=== PATIENT | male | born 1950 | race Caucasian/White ===

== ENCOUNTER → 2016-12-21 | Outpatient (CLI) | payer BC ==
[2016-12-21 08:40] LABS: EKG EKG PERFORMED
[2016-12-21 09:24] LABS: Basophils % (A) 1 %; CH 32.2; CHCM 34.3; Eosinophils # (A) 0.1 k/uL (0-0.7); Eosinophils % (A) 3 %; HCT 47.5 % (39.0-53.0); HDW 2.29; HGB 15.5 gm/dL (13.0-17.5); Luc % (Auto) 3; Lymphocytes % (A) 28 %; MCH 30.9 pg (25.0-35.0); MCHC 32.7 g/dL (31.0-37.0); MCV 94.4 fL (80.0-100.0); Mean Platelet Volume 7.4; Monocytes # (A) 0.3 k/uL (0-1.0); Monocytes % (A) 8 %; Neutrophils # (A) 2.2 k/uL (1.3-7.7); Neutrophils % (A) 58 %; RBC 5.03 m/uL (4.30-5.90); RDW 13.9 % (11.5-15.5); WBC 3.7 k/uL (3.8-10.6); WBC (Perox) 4.33
[2016-12-21 09:44] LABS: Anion Gap 10 mmol/L; Blood Urea Nitrogen 19 mg/dL (9-20); Calcium 9.3 mg/dL (8.4-10.2); Carbon Dioxide 27 mmol/L (22-30); Chloride 106 mmol/L (98-107); Glucose 80 mg/dL (74-99); Non-African American GFR(MDRD) >60 (>60 ml/min/1.73 sqM); Potassium 4.3 mmol/L (3.5-5.1); Sodium 143 mmol/L (137-145)
== END | disposition home or self-care (01) ==
LOC: LABWHC1 08:31
PROVIDERS: ATTEND Urology
DX: Z01.810 Encounter for preprocedural cardiovascular examination (principal); E03.9 Hypothyroidism, unspecified; N40.1 Benign prostatic hyperplasia with lower urinary tract symptoms; R00.1 Bradycardia, unspecified
CPT/HCPCS: 36415; 80048; 85025; 93005

== ENCOUNTER 2016-12-29 08:58 | Day surgery (SDC) | payer BC ==
[2016-12-28 08:37] VITALS: BMI 39.9
[~2016-12-29 08:58] MED LIST: DEXAMETHASONE SOD PHOSPHATE 10 MG/ML 1 ML VIAL IV ONE; HYDROmorphone 1 MG/ML 1 ML SYRINGE IVP PRN; LACTATED RINGERS 1,000 ML IV SCH; ONDANSETRON 4 MG/2 ML VIAL IVP ONE; ceFAZolin 2 GM in SODIUM CHLORIDE 0.9% 100 ML IVPB ONE
[2016-12-29] MEDS ORDERED: LIDOCAINE 1% 20 ML VIAL (10MG/ML) FOR IV START INTRADERMA ONE (10:48)
[2016-12-29] MEDS ORDERED: MIDAZOLAM 2 MG/2 ML VIAL ONE (12:12)
[2016-12-29] MEDS ORDERED: ePHEDrine SULFATE/0.9% NACL/PF 50 MG/5 ML SYRINGE IV ONE (12:12)
[2016-12-29] MEDS ORDERED: fentaNYL (PF) 50 MCG/ML 2 ML AMP ONE (12:12)
[2016-12-29] MEDS ORDERED: HYDROmorphone (PF) 1 MG/ML ONE (12:12)
[2016-12-29] MEDS ORDERED: PROPOFOL 10 MG/ML 20 ML VIAL IV ONE (12:12)
[2016-12-29] MEDS ORDERED: SUCCINYLCHOLINE CHLORIDE 100 MG/5 ML SYR IV ONE (12:12)
[2016-12-29] MEDS ORDERED: LIDOCAINE 1% INJ 10MG/ML (20 ML MDV) ONE (12:12)
--- NOTE | 2016-12-29 14:26 | P.OP ---
Date of Procedure: 12/29/16 Preoperative Diagnosis: BPH with Obstruction Postoperative Diagnosis: Same Procedure(s) Performed: Cystoscopy, Bipolar Transurethral Resection of Prostate (TURP) Anesthesia: CHAPITO Surgeon: Yobani Bustamante Estimated Blood Loss (ml): 150 IV fluids (ml): 700 Pathology: other (prostate chips) Condition: stable Disposition: PACU Indications for Procedure: He is a 65-year-old male who has taken tamsulosin for approximately 10 years for BPH. He notes that his symptoms are worse when he misses a dose. His voiding symptoms have progressed, and uroflow and cystoscopy are consistent with PADILLA secondary to trilobar BPH. He has elected to undergo a bipolar TURP. Operative Findings: Trilobar BPH Description of Procedure: The patient was taken in the operating room and placed in the dorsolithotomy position, The external genitalia was prepped and draped sterilely. The 25- Romanian ACMI resectoscope sheath was introduced into the bladder. The bladder was inspected. Both ureteral orifices were of normal anatomic location and configuration, and clear urine effluxed from both. No tumors or foreign bodies were seen. Examination of the prostate revealed complete obstruction with a trilobar configuration. Using the bipolar cutting loop, the l median lobe was initially resected. Next, the ateral lobes were resected down to the surgical capsule. The floor of the prostate was then resected, proximal to the verumontanum. Lastly, any remaining anterior tissue was resected. The remaining apical tissue was then carefully resected. The resection was carried down to the surgical capsule in all 4 quadrants. The prostatic fossa was then carefully examined, and any areas of bleeding were controlled with electrocautery. Very good hemostasis was attained. The resectoscope was withdrawn into the bulbous urethra. The external urinary sphincter remained intact. The prostatic fossa was open. The [employer] evacuator was used to remove all prostate chips from the bladder. These were saved and sent for pathologic examination. The resectoscope was removed, and a 22 Romanian, 3-Way Connelly catheter was placed. The return was essentially clear. Continuous bladder irrigation was started using 0.9 normal saline. The patient tolerated the procedure well was taken to the recovery room in stable condition.
[2016-12-29] MEDS ORDERED: MAG HYDROX/AL HYDROX/SIMETH 30 ML CUP PO PRN (14:27)
[2016-12-29] MEDS ORDERED: ACETAMINOPHEN TAB 325 MG TAB PO PRN (14:27)
[2016-12-29] MEDS ORDERED: BELLADONNA-OPIUM 16.2-60 MG 1 EACH SUPP RECTAL PRN (14:27)
[2016-12-29] MEDS ORDERED: HYDROcodone/APAP 5-325MG 1 EACH TAB PO PRN ×2 (14:28)
[2016-12-29 15:11] VITALS: RESP 16
[2016-12-29] MEDS: DEXTROSE 5%-0.45% NACL 1,000 ML IV SCH (16:05)
[2016-12-29] MEDS: DOCUSATE 100 MG CAP PO SCH (20:17)
[2016-12-30] MEDS: SODIUM CHLORIDE 0.9% IRRIG 3,000 ML BAG IRRIGATION PRN ×2 (00:03→04:33)
[2016-12-30] MEDS: DEXTROSE 5%-0.45% NACL 1,000 ML IV SCH (04:32)
[2016-12-30 07:43] VITALS: BP 131/66; PULSE 55; TEMP 98.1
[2016-12-30] MEDS: DOCUSATE 100 MG CAP PO SCH (07:57)
--- NOTE | 2016-12-30 10:30 | P.DS ---
Providers Expected date of discharge: 12/30/16 Attending physician: Yobani Bustamante Primary care physician: [facility] Course: On the day of admission, the patient underwent an uncomplicated bipolar TURP. The postoperative course was unremarkable. On the first postoperative day, the patient was comfortable. His Connelly catheter was draining well. Urine was pink tinged. Procedures: Cystoscopy, TURP on 12/29/2016 Patient Condition at Discharge: Good Plan - Discharge Summary New Discharge Prescriptions: No Action Tamsulosin [Flomax] 0.4 mg PO 1200 Simvastatin [Zocor] 40 mg PO 1200 Levothyroxine Sodium [Synthroid] 25 mcg PO 1200 Discharge Medication List Levothyroxine Sodium [Synthroid] 25 mcg PO 1200 12/28/16 [History] Simvastatin [Zocor] 40 mg PO 1200 12/28/16 [History] Tamsulosin [Flomax] 0.4 mg PO 1200 12/28/16 [History] Follow up Appointment(s)/Referral(s): Yobani Bustamante MD [STAFF PHYSICIAN] - 1 Week Activity/Diet/Wound Care/Special Instructions: Discharge home with Connelly catheter. Encourage fluids. Patient was instructed to take a stool softener. No driving for several days. No lifting or strenuous activity. Please instruct patient to remove his catheter in the morning on January 02, 2017 (there is 30 cc in the balloon). Discharge Disposition: HOME SELF-CARE
[2016-12-30] MEDS ORDERED: ATORVASTATIN 20 MG TAB PO SCH (12:00)
[2016-12-30] MEDS ORDERED: LEVOTHYROXINE 25 MCG TAB PO SCH (12:00)
== END 2016-12-30 11:25 | disposition home or self-care (01) ==
LOC: OR 08:58 → 3SUR 14:37 → OR 12-30 11:25
PROVIDERS: ATTEND Urology
DX: N40.1 Benign prostatic hyperplasia with lower urinary tract symptoms (principal); R35.0 Frequency of micturition; E78.5 Hyperlipidemia, unspecified; E07.9 Disorder of thyroid, unspecified; Z79.899 Other long term (current) drug therapy
CPT/HCPCS: 88305; 52601; J2250; J1100; J0690; J2405; J2001; J3010; J1170; J0330; J2704

== ENCOUNTER 2016-12-30 20:03 | Emergency (ER) | payer BC ==
--- NOTE | 2016-12-30 20:21 | ED ---
Male Urogenital HPI - General Chief complaint: Urogenital Stated complaint: Catheter Time Seen by Provider: 12/30/16 20:13 Source: patient Mode of arrival: ambulatory Limitations: no limitations - History of Present Illness Initial comments: 66-year-old male patient presents to emergency department today reporting a fullness and pressure in his bladder. Patient states he underwent a TURP procedure yesterday with Dr. Bustamante, states he was discharged from the hospital today around 11 AM. He states that he has drained his catheter bag one time around 1:00 PM. There is currently 300mL of urine in the catheter bag. He states that he has a fullness feeling in his bladder and he has had some leakage around the catheter insertion site. He denies any abdominal or low back pain. He denies any fever, chills, chest pain, shortness of breath, weakness, or dizziness. - Related Data Home Medications Medication Instructions Recorded Confirmed Levothyroxine Sodium [Synthroid] 25 mcg PO DAILY@1200 12/28/16 12/30/16 Simvastatin [Zocor] 40 mg PO DAILY@1200 12/28/16 12/30/16 Tamsulosin [Flomax] 0.4 mg PO DAILY@1200 12/28/16 12/30/16 Previous Rx's Medication Instructions Recorded Docusate [Colace] 100 mg PO BID #30 capsule 12/30/16 Allergies Allergy/AdvReac Type Severity Reaction Status Date / Time No Known Allergies Allergy Verified 12/30/16 20:08 Review of Systems ROS Statement: Those systems with pertinent positive or pertinent negative responses have been documented in the HPI. ROS Other: All systems not noted in ROS Statement are negative. Past Medical History Past Medical History: Hyperlipidemia, Prostate Disorder, Thyroid Disorder History of Any Multi-Drug Resistant Organisms: None Reported Past Surgical History: Joint Replacement Additional Past Surgical History / Comment(s): TURP Past Psychological History: No Psychological Hx Reported Smoking Status: Current some day smoker Past Alcohol Use History: Occasional Past Drug Use History: Marijuana General Exam Limitations: no limitations General appearance: alert, in no apparent distress, other (Well-developed, well- nourished adult male patient in no acute distress. Initial vital signs were temperature 97.1F, pulse 70, respirations 18, blood pressure 139/70, pulse ox 97% on room air.) Respiratory exam: Present: normal lung sounds bilaterally. Absent: respiratory distress, wheezes, rales, rhonchi, stridor Cardiovascular Exam: Present: regular rate, normal rhythm, normal heart sounds. Absent: systolic murmur, diastolic murmur, rubs, gallop, clicks GI/Abdominal exam: Present: soft, normal bowel sounds. Absent: distended, tenderness, guarding, rebound, rigid exam: Present: normal inspection, other (Connelly catheter in place. No current leakage around the insertion site. No swelling, erythema, or irritation noted.) Neurological exam: Present: alert, oriented X3, CN II-XII intact Psychiatric exam: Present: normal affect, normal mood Skin exam: Present: warm, dry, intact, normal color. Absent: rash Course Vital Signs 12/30/16 12/30/16 20:04 21:08 Temperature 97.1 F L 97.3 F L Pulse Rate 70 68 Respiratory 18 16 Rate Blood Pressure 139/70 138/70 O2 Sat by Pulse 97 98 Oximetry Medical Decision Making - Medical Decision Making 66-year-old male patient presented for evaluation of suprapubic pressure and the feeling of having to urinate. He states that he did undergo TURP procedure yesterday with Dr. Bustamante. He does have a 22-Polish Connelly catheter in place at this time. There is evidence of leaking around the catheter insertion site. Urinary catheter appears to be patent. Did discuss the case with my attending Dr. Sandoval who performed bedside ultrasound which exhibited only the inflated balloon present in the bladder. Did explain to patient that having a 30 mL balloon in her bladder could be one cause for the sensation that he is feeling. Also discussed that the feeling could be related to swelling and irritation from the procedure. He was given instructions to monitor for any urinary retention, or decreased urine output from the catheter. He is instructed to return immediately for any new, worsening, or concerning symptoms. He is instructed to follow-up with Dr. Bustamante as he has planned. Patient verbalizes understanding and agrees with this plan. Disposition Clinical Impression: Connelly catheter in place, S/P TURP (status post transurethral resection of prostate) Disposition: HOME SELF-CARE Condition: Good Instructions: Connelly Catheter Placement and Care (ED) Additional Instructions: Monitor urine output. Return immediately for any urinary retention, increased pain, or any other concerns. Follow-up with your urologist as directed. Referrals: Екатерина Fitzgerald MD [Primary Care Provider] - 1-2 days Time of Disposition: 20:34
[2016-12-30 21:10] VITALS: BP 138/70; PULSE 68; RESP 16; TEMP 97.3
== END 2016-12-30 21:10 | disposition home or self-care (01) ==
LOC: EC 20:03
DX: T83.031A Leakage of indwelling urethral catheter, initial encounter (principal); E78.5 Hyperlipidemia, unspecified; E07.9 Disorder of thyroid, unspecified; F17.200 Nicotine dependence, unspecified, uncomplicated; Z90.79 Acquired absence of other genital organ(s); Z79.899 Other long term (current) drug therapy; Y84.8 Other medical procedures as the cause of abnormal reaction of the patient, or of later complication, without mention of misadventure at the time of the procedure
CPT/HCPCS: 51702; 51798; 99283

== ENCOUNTER 2019-02-13 07:04 | Day surgery (SDC) | payer MEDICARE ==
[2019-02-11 11:38] VITALS: BMI 26.7
[~2019-02-13 07:04] MED LIST changes: -DEXAMETHASONE SOD PHOSPHATE 10 MG/ML 1 ML VIAL IV ONE; -HYDROmorphone 1 MG/ML 1 ML SYRINGE IVP PRN; -LACTATED RINGERS 1,000 ML IV SCH; -ONDANSETRON 4 MG/2 ML VIAL IVP ONE; +Pre Op ABX Message 1 EACH MISC MISCELLANE ONE; -ceFAZolin 2 GM in SODIUM CHLORIDE 0.9% 100 ML IVPB ONE
[2019-02-13] MEDS ORDERED: ONDANSETRON 4 MG/2 ML VIAL IVP ONE (07:06)
[2019-02-13] MEDS ORDERED: HYDROmorphone 0.5 MG/0.5 ML SYRINGE IVP PRN (07:06)
[2019-02-13] MEDS ORDERED: DEXAMETHASONE SOD PHOSPHATE 10 MG/ML 1 ML VIAL IV ONE (07:06)
[2019-02-13] MEDS ORDERED: SCOPOLAMINE 1.5MG/72HR PATCH TRANSDERM ONE (07:06)
[2019-02-13] MEDS: LIDOCAINE 1% 20 ML VIAL (10MG/ML) FOR IV START INTRADERMA PRN ×2 (07:39→07:41)
[2019-02-13] MEDS: LACTATED RINGERS 1,000 ML IV SCH ×2 (07:39→07:41)
--- NOTE | 2019-02-13 07:46 | P.GSHP ---
History of Present Illness H&P Date: 02/13/19 Chief Complaint: Left inguinal hernia 68-year-old male known to our service. Patient seen in the office with an enlarging left inguinal hernia that is painful at times. No symptoms on the right. No prior hernias. Past Medical History Past Medical History: Hyperlipidemia, Prostate Disorder, Thyroid Disorder Additional Past Medical History / Comment(s): Hx BPH. Inguinal hernia currently. History of Any Multi-Drug Resistant Organisms: None Reported Past Surgical History: Joint Replacement Additional Past Surgical History / Comment(s): TURP. Total Rt hip. Past Anesthesia/Blood Transfusion Reactions: Postoperative Nausea & Vomiting (PONV) Smoking Status: Former smoker - Past Family History Mother Family Medical History: No Reported History Medications and Allergies Home Medications Medication Instructions Recorded Confirmed Type No Known Home Medications 02/11/19 02/11/19 History Allergies Allergy/AdvReac Type Severity Reaction Status Date / Time No Known Allergies Allergy Verified 02/11/19 11:11 Surgical - Exam Vital Signs Temp Pulse Resp BP Pulse Ox 97.7 F 58 L 16 165/88 99 02/13/19 07:28 02/13/19 07:28 02/13/19 07:28 02/13/19 07:28 02/13/19 07:28 Physical exam: General: Well-developed, well-nourished HEENT: Normocephalic, sclerae nonicteric Abdomen: Nontender, nondistended, reducible left inguinal hernia, possible small right inguinal hernia Extremities: No edema Neuro: Alert and oriented Assessment and Plan (1) Left inguinal hernia Narrative/Plan: Will proceed with laparoscopic possible open da Alo assisted repair left inguinal hernia possible bilateral with mesh. Risks of bleeding, infection, recurrence, bladder and bowel injury, numbness, nerve injury, conversion to an open procedure were discussed with the patient. The patient understands and wishes to proceed. Current Visit: Yes Status: Acute Code(s): K40.90 - UNIL INGUINAL HERNIA, W/O OBST OR GANGR, NOT SPCF RECUR SNOMED Code(s): 355275603
[2019-02-13] MEDS ORDERED: HEPARIN SODIUM,PORCINE 5,000 UNIT/ML 1 ML VIAL SQ ONE (08:12)
[2019-02-13] MEDS ORDERED: LIDOCAINE 1% INJ 10MG/ML (20 ML MDV) ONE (08:31)
[2019-02-13] MEDS ORDERED: NEOSTIGMINE 1 MG/ML 10 ML VIAL ONE (08:31)
[2019-02-13] MEDS ORDERED: SUCCINYLCHOLINE CHLORIDE 100 MG/5 ML SYR IV ONE (08:31)
[2019-02-13] MEDS ORDERED: GLYCOPYRROLATE 0.2 MG/ML 2 ML VIAL ONE (08:31)
[2019-02-13] MEDS ORDERED: PROPOFOL 10 MG/ML 20 ML VIAL IV ONE (08:31)
[2019-02-13] MEDS ORDERED: MIDAZOLAM 2 MG/2 ML VIAL ONE (08:31)
[2019-02-13] MEDS ORDERED: KETOROLAC 30 MG/ML 1 ML VIAL ONE (08:31)
[2019-02-13] MEDS ORDERED: fentaNYL (PF) 50 MCG/ML 2 ML AMP ONE (08:31)
[2019-02-13] MEDS ORDERED: ROCURONIUM BROMIDE 10 MG/ML 10 ML VIAL IV ONE (08:31)
[2019-02-13] MEDS ORDERED: BUPIVACAINE (PF) 0.25% 30 ML VIAL SQ ONE (09:16)
[2019-02-13 10:22] VITALS: TEMP 97.9
[2019-02-13] MEDS ORDERED: HYDROcodone/APAP 5-325MG 1 EACH TAB PO PRN (11:00)
[2019-02-13] MEDS ORDERED: NALOXONE 0.4 MG/ML 1 ML VIAL IV PRN (11:00)
--- NOTE | 2019-02-13 11:04 | P.OP ---
Date of Procedure: 02/13/19 Procedure(s) Performed: PREOPERATIVE DIAGNOSIS: Left inguinal hernia POSTOPERATIVE DIAGNOSIS: Bilateral inguinal hernia PROCEDURE: Laparoscopic repair I lateral inguinal hernia with the da Alo robot assistance with mesh SURGEON: Naveen EBL: Minimal ANESTHESIA: General COMPLICATIONS: None OPERATIVE PROCEDURE: Patient was placed in the operating table in the supine position. The patient was placed under general anesthesia. The abdomen was prepped and draped in usual sterile fashion. A small curvilinear supraumbilical incision was made. The fascia was retracted anteriorly with Filion forceps. The Veress needle was inserted. The saline drop test was normal. Insufflation took place to 15 mmHg. A 5 mm trocar was placed into the peritoneal cavity. This was later switched to a 12 mm trocar. 2 additional 8 mm trochars were placed in the right upper quadrant and left upper quadrant under visualization. The robotic arms were then brought in and docked into place. The fenestrated bipolar was used in the left arm and the laparoscopic lj was utilized in the right arm. A 30 12 mm scope was used in the up position. The peritoneal cavity was inspected. The patient had a moderate size direct hernia on the left. On the right side there appeared to be both a very small superficial indirect hernia as well as a small direct hernia. Both sides were repaired today. The right side was first addressed. The peritoneum was incised in a horizontal fashion cephalad to the internal inguinal ring. Following that careful dissection of the preperitoneal space took place. This took place using both electrocautery, sharp dissection but primarily blunt dissection. Visualization of the pubic tubercle and Rian's ligament took place medially. Full dissection took place laterally as well. The hernia sac was fully dissected. At that time the left side was addressed. This was approached in a similar fashion with careful dissection of the preperitoneal space. Anterior to the bladder we had free exposure so that the 2 portions of mesh could overlap one another. Once we had adequate space the 15 x 10 progrip mesh was advanced into the preperitoneal space and flattened out appropriately to cover all potential hernia sites bilaterally. No sutures were used. The peritoneal defect was then closed using a locking 2-0 VLok suture bilaterally. The redundant hernia tissue was incorporated into the peritoneal closure bilaterally. The pneumoperitoneum was then evacuated. The fascia at the 12 mm site was closed using the Arturo Martin technique and an 0 Vicryl stitch. The skin of all 3 sites was closed using a 4-0 Monocryl stitch. Skin glue was then applied. DISPOSITION: Stable to recovery room
[2019-02-13 11:45] VITALS: RESP 18
[2019-02-13 12:25] VITALS: BP 132/77; PULSE 60
== END 2019-02-13 12:45 | disposition home or self-care (01) ==
LOC: OR 07:04
PROVIDERS: ATTEND Surgery
DX: K40.20 Bilateral inguinal hernia, without obstruction or gangrene, not specified as recurrent (principal); E07.9 Disorder of thyroid, unspecified; E78.5 Hyperlipidemia, unspecified; Z87.891 Personal history of nicotine dependence; Z87.438 Personal history of other diseases of male genital organs; Z96.641 Presence of right artificial hip joint; Z98.890 Other specified postprocedural states
CPT/HCPCS: 49650; C1781; J2250; J1644; J1100; J2710; J0690; J2405; J2001; J3010; J1885; J0330; J2704

== ENCOUNTER → 2020-12-03 | Outpatient (CLI) | payer MEDICARE ==
[2020-12-03 15:30] LABS: Basophils # (A) 0.03 X 10*3/uL (0.00-0.10); Basophils % (A) 0.6 %; Eosinophils # (A) 0.14 X 10*3/uL (0.04-0.35); Eosinophils % (A) 2.7 %; HCT 44.2 % (39.6-50.0); HGB 14.5 g/dL (13.0-17.0); Lymphocytes # (A) 1.05 X 10*3/uL (0.90-5.00); Lymphocytes % (A) 20.6 %; MCH 30.9 pg (27.0-32.0); MCHC 32.8 g/dL (32.0-37.0); Mean Platelet Volume 9.8 fL (9.5-12.2); Monocytes # (A) 0.36 X 10*3/uL (0.20-1.00); Monocytes % (A) 7.1 %; Neutrophils % (A) 68.6 %; Platelet Count 266 X 10*3/uL (140-440)
== END | disposition home or self-care (01) ==
LOC: LABWHC1 08:51
PROVIDERS: ATTEND Surgery
DX: K40.91 Unilateral inguinal hernia, without obstruction or gangrene, recurrent (principal)
CPT/HCPCS: 36415; 85025

== ENCOUNTER 2020-12-21 07:08 | Day surgery (SDC) | payer MEDICARE ==
[2020-12-17 09:21] VITALS: BMI 26.2
[~2020-12-21 07:08] MED LIST changes: +ACETAMINOPHEN TAB 500 MG TAB PO PRN; +DEXAMETHASONE SOD PHOSPHATE 4 MG/ML 1 ML VIAL IV ONE; +HEPARIN SODIUM,PORCINE/PF 5,000 UNIT/0.5 ML SYRINGE SQ PRN; +HYDROmorphone 0.5 MG/0.5 ML SYRINGE IVP PRN; +LACTATED RINGERS 1,000 ML IV SCH; +ONDANSETRON 4 MG/2 ML VIAL IVP ONE; -Pre Op ABX Message 1 EACH MISC MISCELLANE ONE
--- NOTE | 2020-12-21 08:05 | P.GSHP ---
History of Present Illness H&P Date: 12/21/20 Chief Complaint: Recurrent left inguinal hernia 70-year-old male underwent previous laparoscopic repair bilateral inguinal hernia 2 years ago. Patient noticed a recurrent bulge left groin within a few months of that surgery. He admits that he was lifting heavy objects and resuming his sporting activities within a few weeks of surgery. Seen recently in the office for evaluation. Recurrent hernia identified. Here today for repair. Past Medical History Past Medical History: Prostate Disorder Additional Past Medical History / Comment(s): Hx BPH. Inguinal hernia currently. History of Any Multi-Drug Resistant Organisms: None Reported Past Surgical History: Joint Replacement Additional Past Surgical History / Comment(s): TURP. RIGHT TOTAL HIP REPLACEMENT Past Anesthesia/Blood Transfusion Reactions: Postoperative Nausea & Vomiting (PONV) Past Psychological History: No Psychological Hx Reported Smoking Status: Never smoker Past Alcohol Use History: Occasional Past Drug Use History: Marijuana - Past Family History Mother Family Medical History: No Reported History Medications and Allergies Home Medications Medication Instructions Recorded Confirmed Type No Known Home Medications 12/17/20 12/17/20 History Allergies Allergy/AdvReac Type Severity Reaction Status Date / Time No Known Allergies Allergy Verified 12/17/20 09:15 Surgical - Exam Vital Signs Temp Pulse Resp BP Pulse Ox 97.6 F 60 18 168/81 98 12/21/20 07:44 12/21/20 07:44 12/21/20 07:44 12/21/20 07:44 12/21/20 07:44 Physical exam: General: Well-developed, well-nourished HEENT: Normocephalic, sclerae nonicteric Abdomen: Nontender, nondistended, recurrent left inguinal hernia Extremities: No edema Neuro: Alert and oriented Assessment and Plan (1) Left inguinal hernia Narrative/Plan: Will proceed with open repair with mesh left inguinal hernia. Risks of bleeding, infection, recurrence, bladder and bowel injury, numbness, nerve injury were discussed with the patient. The patient understands and wishes to proceed. Current Visit: No Status: Acute Code(s): K40.90 - UNIL INGUINAL HERNIA, W/O OBST OR GANGR, NOT SPCF RECUR SNOMED Code(s): 388935426
[2020-12-21] MEDS ORDERED: LIDOCAINE 1% (10MG/ML) FOR IV START INTRADERMA ONE (08:06)
[2020-12-21] MEDS ORDERED: MIDAZOLAM 2 MG/2 ML VIAL IVP ONE (08:34)
[2020-12-21] MEDS ORDERED: ROPIVACAINE 5 MG/ML 30 ML VIAL ONE (09:01)
[2020-12-21] MEDS ORDERED: NEOSTIGMINE 1 MG/ML 10 ML VIAL ONE (09:01)
[2020-12-21] MEDS ORDERED: SUCCINYLCHOLINE CHLORIDE 100 MG/5 ML SYR IV ONE (09:01)
[2020-12-21] MEDS ORDERED: PROPOFOL 10 MG/ML 20 ML VIAL IV ONE (09:01)
[2020-12-21] MEDS ORDERED: GLYCOPYRROLATE 0.2 MG/ML 2 ML VIAL ONE (09:01)
[2020-12-21] MEDS ORDERED: LIDOCAINE 2%-EPI 1:100,000 20 ML VIAL ONE (09:01)
[2020-12-21] MEDS ORDERED: LIDOCAINE 1% INJ 10MG/ML (20 ML MDV) ONE (09:01)
[2020-12-21] MEDS ORDERED: fentaNYL (PF) 50 MCG/ML 2 ML AMP ONE (09:01)
[2020-12-21] MEDS ORDERED: ROCURONIUM 10 MG/ML (5 ML VIAL) IV ONE (09:01)
[2020-12-21] MEDS ORDERED: BUPIVACAINE (PF) 0.5% 30 ML VIAL SQ ONE ×2 (09:30)
--- NOTE | 2020-12-21 10:43 | P.OP ---
Date of Procedure: 12/21/20 Procedure(s) Performed: PREOPERATIVE DIAGNOSIS: Recurrent left inguinal hernia POSTOPERATIVE DIAGNOSIS: Same PROCEDURE: Repair recurrent left inguinal hernia with mesh SURGEON: Dr. Hodge ANESTHESIA: General OPERATIVE PROCEDURE DETAILS: Patient was placed in the operating table in the supine position and placed under general anesthesia. An oblique incision was made in the left groin. Dissection down through the subcutaneous tissues took place using electrocautery. The external oblique fascia was incised using a scalpel. This opening was lengthened using the Metzenbaum scissors. The spermatic cord was encircled with a Corinna drain. The structures were identified and preserved. Careful dissection revealed took place. The patient had a protrusion from the direct hernia space. I could not feel a definite defect in the fascia however. This appeared more consistent with fat that was anterior to the mesh. In either case this was imbricated using a short running #1 Vicryl suture by approximating the conjoined tendon to the folding edge of the inguinal ligament. The spermatic cord was carefully dissected. I could not visualize an indirect hernia sac. A 3" x 6" Prolene mesh was cut to fit on the exposed fascia. This was sutured to the pubic tubercle the folding edge of the inguinal ligament and the conjoined tendon. A slit was created in the mesh and the mesh was wrapped around the spermatic cord and sutured back to itself. The external oblique was then reapproximated using a running 2-0 Vicryl suture. The subcutaneous tissues were reapproximated using a 3-0 Vicryl sutures. The skin was closed using 4-0 Monocryl sutures. Skin glue was then applied. HERNIA CHARACTERISTICS: Type: Recurrent left direct TYPE OF MESH USED: 3x6 inch Prolene LOCATION OF MESH: Overlay FIXATION: 2-0 Nurolon sutures DISPOSITION: Stable to recovery room
[2020-12-21 10:56] VITALS: RESP 16; TEMP 97.2
[2020-12-21] MEDS ORDERED: LACTATED RINGERS 1,000 ML IV ONE (11:38)
[2020-12-21] MEDS ORDERED: ACETAMINOPHEN TAB 325 MG TAB PO SCH (12:00)
--- NOTE | 2020-12-21 12:31 | P.ANPRN ---
Procedure Note - Anesthesia - Nerve Block Performed Right Erector Spinae Single Time Out Performed: Yes Date of Procedure: 12/21/20 Procedure Start Time: 08:33 Procedure Stop Time: 08:39 Location of Patient: PreOp Indication: Acute Post-Operative Pain, Requested by Surgeon Sedation Type: Sedate with meaningful contact maintained Preparation: Sterile Prep Position: Prone Needle Types: Pajunk Needle Gauge: 21 Ultrasound used to visualize needle placement: Yes Ultrasound used to observe medication spread: Yes Blood Aspirated: No Pain Paresthesia on Injection Noted: No Resistance on Injection: Normal Image Stored and Saved: Yes Events: Uneventful and Well Tolerated (ropi .5% 20cc plus xylo 2% with epi 10cc)
[2020-12-21 13:16] VITALS: BP 152/90; PULSE 71
[2020-12-21] MEDS ORDERED: IBUPROFEN 600 MG TAB PO SCH (15:00)
== END 2020-12-21 13:35 | disposition home or self-care (01) ==
LOC: OR 07:08
PROVIDERS: ATTEND Surgery
DX: K40.91 Unilateral inguinal hernia, without obstruction or gangrene, recurrent (principal); N40.0 Benign prostatic hyperplasia without lower urinary tract symptoms; Z90.79 Acquired absence of other genital organ(s); Z96.641 Presence of right artificial hip joint
CPT/HCPCS: 49520; 64999; C1781; J2250; J1100; J2710; J0690; J2405; J2001; J3010; J2795; J0330; J2704; J1644